=== PATIENT | male | born 1955 | race Caucasian/White ===

== ENCOUNTER 2016-07-23 14:42 | Outpatient (RCR) | payer OTHER ==
[~2016-07-23] VITALS: Ht 182.9 cm; Wt 83.9 kg
--- NOTE | 2016-07-23 14:42 | NUR ---
1435 HRS: PATIENT PRESENTED INITIALLY AT ED [facility]ON[employer]. PHARMACIST ARCE NOTIFIED OF PATIENT'S ARRIVAL.
[2016-07-23] MEDS ORDERED: OMALIZUMAB 150 MG (XOLAIR) VIAL SC ONE (15:30)
--- NOTE | 2016-08-05 15:16 | NUR ---
pt called at 2;30 that they were coming at 3;30, called at 3;15 pm and med had not been started by pharmacy, asked them to come up and talk to pt
[2016-08-05] MEDS ORDERED: OMALIZUMAB 150 MG (XOLAIR) VIAL SC ONE (15:25)
[2016-08-19] MEDS ORDERED: OMALIZUMAB 150 MG (XOLAIR) VIAL SC ONE (15:00)
[2016-09-02] MEDS ORDERED: OMALIZUMAB 150 MG (XOLAIR) VIAL SC ONE (14:55)
[2016-09-16] MEDS ORDERED: OMALIZUMAB 150 MG (XOLAIR) VIAL SC ONE (15:30)
[2016-09-30] MEDS ORDERED: OMALIZUMAB 150 MG (XOLAIR) VIAL SC ONE (15:10)
[2016-10-14 14:43] VITALS: BP 116/70
[2016-10-14] MEDS ORDERED: OMALIZUMAB 150 MG (XOLAIR) VIAL SC SCH (15:30)
== END 2016-10-21 | disposition home or self-care (01) ==
LOC: EUOP 08-05 15:12
PROVIDERS: ATTEND Family Medicine
DX: J45.40 Moderate persistent asthma, uncomplicated (principal)
CPT/HCPCS: 96372; J2357

== ENCOUNTER → 2016-09-30 | Outpatient (CLI) | payer OTHER ==
[~2016-09-30] MED LIST: ASPI-586 PO; ATOR10TA PO; CARV3.12 PO; CETI10TA20 PO; CHOL200018 PO; CRV6.25T PO; FEXO180T84 PO; FISH OIL500 M1 PO; FLUC100T6 PO; FLUT16SP NS; FLUT1DIS3 IH; FLUT8AER3 INH; MULT-1061 PO; PRED20TA PO; RED600CA2 PO; [UNRECOGNIZED DRUG - CODE] TP
--- NOTE | 2016-09-30 16:37 | Diagnostic Imaging Report ---
INDICATION: Cough and fever. FINDINGS: PA and lateral chest obtained at 4:23 p.m. There is some linear atelectatic change versus infiltrate in both lung bases. There is a small density in the right midlung just below the level of the hilum, this is indeterminate between nodule and infiltrate. A followup study is recommended. There is no pleural fluid or pneumothorax. IMPRESSION: There is some linear atelectatic change or early infiltrate in both lung bases. There is an indeterminate density in the right midlung which may be nodule or infiltrate, for which followup is recommended. This was not seen on previous chest CT of 07/16/16. Dictated by: Dictated on workstation # [id number]
== END ==
LOC: RAD 16:15
PROVIDERS: ATTEND Family Medicine
DX: R05 Cough (principal); R50.9 Fever, unspecified; R91.8 Other nonspecific abnormal finding of lung field
CPT/HCPCS: 71020

== ENCOUNTER 2016-10-28 15:01 | Outpatient (RCR) | payer OTHER ==
[~2016-10-28] VITALS: Ht 182.9 cm; Wt 83.9 kg
[2016-10-28] MEDS ORDERED: OMALIZUMAB 150 MG (XOLAIR) VIAL SC ONE (15:30)
[2016-11-11] MEDS ORDERED: OMALIZUMAB 150 MG (XOLAIR) VIAL SC ONE (15:00)
[2016-11-25] MEDS ORDERED: OMALIZUMAB 150 MG (XOLAIR) VIAL SC ONE (15:00)
[2016-11-25 15:42] VITALS: BP 129/83
--- NOTE | 2016-11-25 15:50 | NUR ---
Patient arrived to ER for scheduled dose of Xolair.Vital signs were obtained and charted. First injection was SQ to the right arm. Second injection was SQ to the left upper arm. Patient tolerated well.
== END 2017-01-26 | disposition home or self-care (01) ==
LOC: EUOP 11-11 15:08
PROVIDERS: ATTEND Family Medicine
DX: J45.40 Moderate persistent asthma, uncomplicated (principal)
CPT/HCPCS: 96372; J2357

== ENCOUNTER → 2016-11-17 | Outpatient (CLI) | payer OTHER ==
[2016-11-17 13:10] LABS: MEAN CORPUSCULAR VOLUME 94 FL (80-100); MEAN PLATELET VOLUME 9.6 FL (6.0-9.5); PLATELET COUNT 350 10^3uL (150-450); WHITE BLOOD COUNT 8.49 10^3uL (4.0-11.0)
[2016-11-17 13:19] LABS: MEAN CORPUSCULAR HEMOGLOBIN 33.2 PG (26.0-34.0); MEAN CORPUSCULAR HGB CONC 35.5 g/dL (31.0-37.0)
[2016-11-17 13:29] LABS: ALBUMIN 4.1 g/dL (3.4-5.0); ALKALINE PHOSPHATASE 107 U/L (38-126); ANION GAP 14.9 MEQ/L (3-15); BUN/CREATININE RATIO 17 (10-20); CALCULATED IONIZED CALCIUM 4.2 mg/dL (3.8-4.6); CREATINE KINASE 109 U/L (55-170); TOTAL PROTEIN 7.5 g/dL (6.4-8.5)
[2016-11-17 13:52] LABS: ERYTHROCYTE SEDIMENTATION RT* 13 mm/hr (0-19)
[2016-11-17 14:14] LABS: SEGMENTED NEUTROPHILS % 40 % (51-67)
[2016-11-17 14:15] LABS: BAND NEUTROPHILS % 0 % (0-6); EOSINOPHILS % 31 % (0-4); LYMPHOCYTES # 1.6 #; MONOCYTES # 0.8 #; MONOCYTES % 10 % (3-11); RBC MORPH NORMAL (NORMAL); TOTAL CELLS COUNTED 100
[2016-11-17 16:51] LABS: BCR/ABL p190 SPECIMEN BLOOD; BCR/ABL p210 SPECIMEN BLOOD
[2016-11-19 11:23] LABS: KAPPA LIGHT CHAINS SERUM 2.77 mg/dL
== END ==
LOC: LAB 12:35
PROVIDERS: ATTEND Internal Medicine Hematology & Oncology
DX: J82 Pulmonary eosinophilia, not elsewhere classified (principal)
CPT/HCPCS: 36415; 80053; 81206; 81207; 81270; 81403; 82550; 82784; 82785; 83520; 83883; 84155; 84484; 85007; 85027; 85652; 86334

== ENCOUNTER → 2016-11-20 | Outpatient (CLI) | payer OTHER | LOC: RAD 08:09 | PROVIDERS: ATTEND Internal Medicine Hematology & Oncology | DX: J82 Pulmonary eosinophilia, not elsewhere classified (principal); R91.8 Other nonspecific abnormal finding of lung field; R59.1 Generalized enlarged lymph nodes | CPT/HCPCS: 71260; Q9967 ==

== ENCOUNTER → 2016-12-14 | Outpatient (CLI) | payer OTHER ==
[2016-12-14 11:51] LABS: BASOPHILS % (AUTO) 1 % (0-2); EOSINOPHILS # (AUTO) 0.9 10^3uL; EOSINOPHILS % (AUTO) 10 % (0-4); LYMPHOCYTES # (AUTO) 2.5 X10^3; MEAN CORPUSCULAR HGB CONC 34.6 g/dL (31.0-37.0); MEAN CORPUSCULAR VOLUME 93 FL (80-100); MEAN PLATELET VOLUME 8.9 FL (6.0-9.5); MONOCYTES % (AUTO) 12 % (3-11); NEUTROPHILS # (AUTO) 4.4 X10^3; NEUTROPHILS % (AUTO) 49 % (51-67); PLATELET COUNT 359 10^3uL (150-450)
[2016-12-14 11:58] LABS: MEAN CORPUSCULAR HEMOGLOBIN 32.2 PG (26.0-34.0)
[2016-12-15 10:53] LABS: BAND NEUTROPHILS % 0 % (0-6); LYMPHOCYTES # 2.5 #; SEGMENTED NEUTROPHILS % 43 % (51-67)
[2016-12-15 10:54] LABS: EOSINOPHILS % 16 % (0-4); MONOCYTES % 13 % (3-11); NUCLEATED RED BLOOD CELLS 3; RBC MORPH NORMAL (NORMAL); TOTAL CELLS COUNTED 100
== END ==
LOC: LAB 11:41
PROVIDERS: ATTEND Internal Medicine Hematology & Oncology
DX: D72.1 Eosinophilia (principal)
CPT/HCPCS: 36415; 85025